=== PATIENT | female | born 1995 | race Caucasian/White ===

== ENCOUNTER 2020-07-26 09:50 | Day surgery (SDC) | payer BC ==
[2020-07-23 13:37] VITALS: BMI 21.4
[~2020-07-26 09:50] MED LIST: DEXAMETHASONE SOD PHOSPHATE 4 MG/ML 1 ML VIAL IV ONE; LACTATED RINGERS 1,000 ML IV SCH; LIDOCAINE 1% (10MG/ML) FOR IV START INTRADERMA PRN; MIDAZOLAM 2 MG/2 ML VIAL IV PRN; ONDANSETRON 4 MG/2 ML VIAL IVP ONE
[2020-07-26] MEDS ORDERED: MIDAZOLAM 2 MG/2 ML VIAL ONE (11:10)
[2020-07-26] MEDS ORDERED: fentaNYL (PF) 50 MCG/ML 2 ML AMP ONE (11:10)
[2020-07-26] MEDS ORDERED: KETAMINE 10 MG/ML 20 ML VIAL ONE (11:10)
[2020-07-26] MEDS ORDERED: BUPIVACAINE (PF) 0.25% 30 ML VIAL SQ ONE (11:14)
[2020-07-26] MEDS ORDERED: LACTATED RINGERS 1,000 ML IV ONE (12:30)
--- NOTE | 2020-07-26 12:46 | XR ---
EXAMINATION TYPE: XR foot limited RT DATE OF EXAM: 07/26/2020 COMPARISON: NONE HISTORY: ORIF TECHNIQUE: One view submitted FINDINGS: Exam limited by artifact resolution. Suggestion of postsurgical change involving the left f oot. Exam nearly nondiagnostic. IMPRESSION: See above
--- NOTE | 2020-07-26 12:46 | FL ---
EXAMINATION TYPE: FL guidance operating room DATE OF EXAM: 07/26/2020 HISTORY: Fluoroscopy time 1 minute and 15 seconds of fluoroscopy provided. IMPRESSION: 1. Fluoroscopy time.
[2020-07-26 12:52] VITALS: TEMP 97.7
[2020-07-26] MEDS: HYDROmorphone 0.5 MG/0.5 ML SYRINGE IVP PRN ×2 (12:55→13:02)
[2020-07-26 14:04] VITALS: BP 102/66; PULSE 76; RESP 16
[2020-07-26] MEDS ORDERED: ONDANSETRON 4 MG/2 ML VIAL ONE (14:05)
[2020-07-26] MEDS ORDERED: ONDANSETRON 4 MG/2 ML VIAL IVP ONE (14:05)
[2020-07-26] MEDS ORDERED: SCOPOLAMINE 1.5MG/72HR PATCH TRANSDERM ONE (14:25)
--- NOTE | 2020-08-01 21:13 | OP ---
OPERATIVE REPORT DATE OF SURGERY: 07/26/2020 PREOPERATIVE DIAGNOSIS: Hallux valgus, right foot. POSTOPERATIVE DIAGNOSIS: Hallux valgus, right foot. PROCEDURE: Lapidus bunionectomy, right foot. SURGEON: Ernesto Nava DPM ANESTHESIA: General. HEMOSTASIS: Right ankle tourniquet at 250 mmHg. ESTIMATED BLOOD LOSS: Minimal. MATERIALS: One lapiplasty U plate as well as a straight plate with associated screws. INJECTABLES: 20 mL 0.25% Marcaine preoperatively. SPECIMENS: None. COMPLICATIONS: None. OPERATIVE REPORT: The patient was brought into the operating room and placed on the table in supine position. Timeout was taken to confirm correct patient identifiers, correct site of surgery, and correct procedure. When everybody in the room was in agreement, the patient was placed under general anesthetic. Twenty mL of 0.25% Marcaine was injected as a right ankle block. A well-padded tourniquet was placed on the right ankle and the right foot was prepped and draped in the usual manner. The foot was exsanguinated, the tourniquet inflated to 250 mmHg. Attention was directed over the dorsal aspect of the right foot, where a 6 cm incision was made over the first tarsometatarsal joint medial to the long extensor tendon. The incision was deepened down to the subcutaneous tissue, careful to identify, avoid and retract any neurovascular structures and cauterize any bleeding vessels. Dissection was continued down to the capsule, where an incision was made through the capsule and periosteal structures medial to the long extensor tendon. Subperiosteal dissection was done with these tissues to expose the entirety of the joint. A sagittal saw was inserted into the joint to plane the surfaces and allow for a frontal plane range of motion. The fulcrum was then placed at the lateral base of the first metatarsal and intermediate cuneiform. The cut guide was placed over the joint surface and aligned. It was used as a reference point to lazaro the small incision 3 mm distal to the tip of the cut guide on the lateral side of the second metatarsal shaft, which was bluntly dissected. The reduction clamp was placed and advanced to correct the intermetatarsal angle. Once that was completed, the sesamoids were checked for position; however, they did not correct spontaneously. Therefore a small incision was made lateral to the first metatarsophalangeal joint. It was bluntly dissected down to the joint level, where a lateral capsulotomy was performed as well as a release of the lateral sesamoid collateral ligament. The clamp was used to reduce the intermetatarsal angle again. This time the sesamoids corrected. There was good medially gapping at the joint surface. The guidewire was placed through the reduction clamp and advanced to the second metatarsal to lock everything in place once the transverse and frontal plane correction was performed. The joint seeker was placed into the first tarsometatarsal joint and the cut guide applied over the top. Pins were placed through the cut guide to lock it in place. Then alignment was checked under fluoroscopy. Once that was confirmed, a third wire was placed to prevent any migration of the cut guide. The sagittal saw was used to resect the joint surfaces. Then the cut guide was removed. The distractor was placed over the guide pins and then the joint distracted. The bony pieces were then removed, making sure there was nothing left deep. When that was confirmed, the joint surfaces were fenestrated with a 2-0 drill bit, leaving the bony fragments in place. Then the wire was removed from the reduction clamp and then the arthrodesis site was compressed. Once full compression was achieved, it was checked under fluoroscopy to make sure there was no lateral or plantar gapping. When there was none found, a threaded olive wire was placed across the arthrodesis site to maintain correction. The medial U plate was placed with associated locking screws. The olive wire was removed and then repositioned to maintain temporary fixation. The dorsal plate was then placed with provisional fixation and checked under fluoroscopy for proper alignment. Once the proper alignment was achieved, the screw holes closest to the arthrodesis site were filled with their locking screws, the provisional fixation removed, and then the remaining locking screws placed. At that point the olive wire was removed, as was the reduction clamp, and fluoroscopic imaging showed complete correction of the intermetatarsal angle, no plantar gapping, good contact at the arthrodesis site, and correction of the sesamoid apparatus and the frontal plane deformity. The wounds were all irrigated with antibiotic saline. Deep closure was done with 2-0 Vicryl, subcutaneous closure done with 4-0 Monocryl. Skin closure was done with 3-0 Stratafix in a running subcuticular manner. Small incisions were closed with Monocryl. glue was applied across the incision, allowed to dry, and then Steri- Strips were applied across the incisions. Non-adherent gauze and a bulky dry dressing were applied over the right foot. The tourniquet was released and capillary refill returned to all digits on the right foot. The patient was placed in a short fracture boot with the ankle in neutral position. Anesthesia was reversed and the patient was taken to Recovery with vital signs stable. MMODL / IJN: [id number] /
== END 2020-07-26 14:36 | disposition home or self-care (01) ==
LOC: OR 09:50
PROVIDERS: ATTEND Podiatrist
DX: M20.11 Hallux valgus (acquired), right foot (principal); M20.12 Hallux valgus (acquired), left foot; M20.42 Other hammer toe(s) (acquired), left foot; M20.41 Other hammer toe(s) (acquired), right foot; M21.611 Bunion of right foot; M21.612 Bunion of left foot; Z98.890 Other specified postprocedural states
CPT/HCPCS: 81025; 73620; 28750; C1713; J2250; J1100; J0690; J2405; J3010; J1170

== ENCOUNTER 2021-04-11 05:56 | Day surgery (SDC) | payer BC ==
[2021-04-09 13:38] VITALS: BMI 21.4
[2021-04-11] MEDS ORDERED: ONDANSETRON 4 MG/2 ML VIAL ONE (05:57)
[2021-04-11] MEDS ORDERED: ONDANSETRON 4 MG/2 ML VIAL IVP ONE (06:26)
[2021-04-11] MEDS ORDERED: DEXAMETHASONE SOD PHOSPHATE 4 MG/ML 1 ML VIAL IV ONE (06:26)
[2021-04-11] MEDS ORDERED: MIDAZOLAM 2 MG/2 ML VIAL IV PRN (06:26)
[2021-04-11] MEDS ORDERED: SCOPOLAMINE 1.5MG/72HR PATCH TRANSDERM ONE (06:26)
[2021-04-11] MEDS ORDERED: LACTATED RINGERS 1,000 ML IV SCH (06:26)
[2021-04-11 06:30] VITALS: RESP 16
[2021-04-11] MEDS ORDERED: LIDOCAINE 1% (10MG/ML) FOR IV START INTRADERMA ONE (06:39)
[2021-04-11] MEDS ORDERED: fentaNYL (PF) 50 MCG/ML 2 ML AMP IVP ONE (06:55)
[2021-04-11] MEDS ORDERED: MIDAZOLAM 2 MG/2 ML VIAL IVP ONE (06:55)
[2021-04-11] MEDS ORDERED: LIDOCAINE 1% INJ 10MG/ML (20 ML MDV) ONE (07:19)
[2021-04-11] MEDS ORDERED: diphenhydrAMINE 50 MG/ML 1 ML VIAL ONE (07:19)
[2021-04-11] MEDS ORDERED: fentaNYL (PF) 50 MCG/ML 2 ML AMP ONE (07:19)
[2021-04-11] MEDS ORDERED: PROPOFOL 10 MG/ML 20 ML VIAL IV ONE (07:19)
[2021-04-11] MEDS ORDERED: LACTATED RINGERS 1,000 ML IV ONE ×2 (08:39→11:00)
[2021-04-11] MEDS: HYDROmorphone 0.5 MG/0.5 ML SYRINGE IVP PRN ×2 (09:17→09:30)
[2021-04-11 09:27] VITALS: TEMP 97.7
--- NOTE | 2021-04-11 09:35 | P.OP ---
Date of Procedure: 04/11/21 Preoperative Diagnosis: Hallux valgus left foot Postoperative Diagnosis: Same Procedure(s) Performed: Modified Lapidus bunionectomy left foot Implants: Plates and screws for Lapiplasty system Anesthesia: TIANNAA Surgeon: Ernetso Nava Estimated Blood Loss (ml): 3 Pathology: none sent Condition: stable Disposition: PACU Indications for Procedure: Painful bunion deformity nonresponsive to conservative treatment Description of Procedure: Prior to the patient being brought to the operating room, anesthesia administered a nerve block and left lower extremity utilizing ultrasonic guidance and having the patient under mild sedation. Then the patient was brought into the operating room and placed on table supine position. Timeout was taken to confirm correct patient identifiers, correct procedure, and correct site of surgery. The room was in agreement the patient was induced and placed under general anesthesia. A well-padded tourniquet was placed on left ankle and then the left foot was prepped and draped in the usual manner. The foot was exsanguinated with an Esmarch bandage and the tourniquet inflated to 250 mmHg Attention was first directed over the medial aspect of the first metatarsal phalangeal joint. A linear incision was made between the neurovascular structures. It was deepened down through the subcutaneous layer careful to identify, avoid, and retract any neurovascular structures and cauterize any b leeding vessels. Then dissection was continued down to the joint capsule. 2 semi-elliptical converging incisions were made on the medial aspect of the first metatarsal capsule the interposing piece of tissue was removed which would facilitate sesamoid correction upon closure. Then the capsule was reflected from its osseous attachments on the medial and plantar aspect of the first metatarsal head. The sesamoid apparatus was distracted plantarly and the lateral sesamoid collateral ligament transected and a lateral capsulotomy performed. Then attention was directed over the dorsal aspect of the first tarsometatarsal joint. A linear incision was made medial to the extensor hallucis longus tendon. It was deepened down to the subcutaneous tissue careful to identify, avoid, and retract any neurovascular structures and cauterize any bleeding vessels. Blunt dissection was continued down to the deep fascia and periosteum. An incision was made through these tissues medial to the extensor hallucis longus tendon. Subperiosteal dissection was performed of the soft tissue to expose the first tarsometatarsal joint. An osteotome was inserted into the joint to free up any so many soft tissue attachments. A sagittal saw blade was inserted into the joint space and then the saw activated to plane the joint surfaces and increased frontal plane rotation movement. A wire was then placed in the base of the first metatarsal approximately 1 cm from the joint line. This was used to rotate the first metatarsal to correct frontal plane rotation. A combination joint seeker/fulcrum was then inserted through the joint and on the lateral aspect of the base of the first metatarsal. The cut guide was then placed over the joint seeker and then as a reference the distal aspect of the cut guide was used for the small incision made over the lateral side of the second metatarsal. The ankle reduction clamp was then positioned and then while holding the frontal plane rotation corrected, was advanced to close the intermetatarsal angle. The Monocryl was visualized under fluoroscopy and once the acceptable amount of correction was noted a guidewire was placed through the reduction clamp to lock everything in place. Pins were placed through the cut guide and a third pin placed in the cut guide to prevent it from migrating dorsally and prevent any rotation. A sagittal saw 0 used to resect the joint surfaces of the tarsometatarsal joint through the cut guide. The pin that locked the cutting guide in place was removed and then the cut guide was removed and then the joint distractor placed over the remaining pins. The pin through the reduction clamp was removed at this time. The distractor was opened so that there was easier access to the cut surface of the bone. The combination joint seeker fulcrum were removed. All pieces of bone were thoroughly removed and the wound is irrigated thoroughly with antibiotic saline. Then a 2 mm drill bit was used to fenestrate both of the conjoining surfaces of the arthrodesis site. A smaller fulcrum that was then placed on the lateral side of the base of the first metatarsal. Then the distractor was reversed and while holding the great toe dorsiflexed was used to compress the cut surfaces of bone until a fully seated against each other. Fluoroscopic imaging checked on both the AP and lateral views show that there was complete compression of the arthrodesis site with no angular deformity. Threaded olive wire was then placed from dorsal proximal to distal plantar on the lateral side of the arthrodesis site first second point of fixation. The medial plate was then positioned across the arthrodesis site and then temporarily fixated. Fluoroscopy was used to check the overall alignment and once it was found satisfactory drill holes were made at the screw holes closest to the arthrodesis site. The combination locking/compression screws were placed through these drill holes and then tightened down fully into the plate. The temporary fixation was removed and locking screws were placed in the most distal and proximal holes of the medial plate. The distractor was removed along with the guidepins. The dorsal plate was positioned and temporarily fixated until satisfactory under fluoroscopy. The holes closest to the arthrodesis site were filled with 1 compression/locking screw and 1 locking screw. Then the temporary fixation was removed and the most distal proximal holes were filled with 1 locking compression 1 locking screw. Final fluoroscopic imaging showed complete correction intermetatarsal angle with p kamron alignment of the sesamoid apparatus. A sagittal saw was used to resect some of the medial eminence of the first metatarsal head that seemed to protrude abnormally. Once completed all roughened edges were smoothed with a rasp and then all the wounds were thoroughly irrigated with antibiotic saline. Capsular closure was done with 0 Vicryl. Subcu closure done with 4-0 Monocryl. Skin closure done with 40 stratified effects in a running subarticular manner. Dermal glue was applied across incisions allowed to dry then Steri-Strips are placed over all the incisions. A jumpstart dressing was placed over the incisions and a bulky dry dressing applied to left foot. The tourniquet was released and capillary refill return to all digits on the left foot. The patient was then placed in a well-padded, well molded plaster posterior mold/sugar tong splint that was held in place until it dried in neutral position. Anesthesia reversed and the patient taken recovery with vital signs stable.
[2021-04-11] MEDS ORDERED: KETOROLAC 15 MG/ML 1 ML VIAL ONE (10:08)
[2021-04-11] MEDS ORDERED: HYDROmorphone 0.5 MG/0.5 ML SYRINGE IVP ONE (10:33)
[2021-04-11] MEDS ORDERED: oxyCODONE-APAP 5-325MG 1 EACH TAB PO ONE ×2 (10:42→12:01)
[2021-04-11] MEDS ORDERED: oxyCODONE-APAP 5-325MG 1 EACH TAB ONE ×2 (10:45→11:58)
[2021-04-11 12:46] VITALS: BP 129/77; PULSE 95
--- NOTE | 2021-04-11 16:06 | P.ANPRN ---
Procedure Note - Anesthesia - Nerve Block Performed Left Adductor Canal Single Time Out Performed: Yes Date of Procedure: 04/11/21 Procedure Start Time: 06:54 Procedure Stop Time: 07:00 Location of Patient: PreOp Indication: Acute Post-Operative Pain, Dx/Pain Location, Requested by Surgeon Specifically requested for management of pain by DrVitaly: Ernesto Nava Sedation Type: Sedate with meaningful contact maintained Preparation: Sterile Prep Position: Supine Catheter: None Needle Types: Facet Needle Gauge: 21 Ultrasound used to visualize needle placement: Yes Ultrasound used to observe medication spread: Yes Injectate: 0.5% Ropivacaine (see comment for volume) Blood Aspirated: No Pain Paresthesia on Injection Noted: No Resistance on Injection: Normal Image Stored and Saved: Yes Events: Uneventful and Well Tolerated (20cc 0.25% Ropivacaine)
--- NOTE | 2021-04-11 16:08 | P.ANPRN ---
Procedure Note - Anesthesia - Nerve Block Performed Left Popliteal Single Time Out Performed: Yes Date of Procedure: 04/11/21 Procedure Start Time: 12:43 Procedure Stop Time: 12:49 Location of Patient: Phase II Indication: Acute Post-Operative Pain, Dx/Pain Location, Requested by Surgeon Specifically requested for management of pain by DrVitaly: Ernesto Nava Sedation Type: Sedate with meaningful contact maintained Preparation: Sterile Prep Position: Left Lateral Catheter: None Needle Types: Facet Needle Gauge: 21 Ultrasound used to visualize needle placement: Yes Ultrasound used to observe medication spread: Yes Injectate: 0.5% Ropivacaine (see comment for volume) Blood Aspirated: No Pain Paresthesia on Injection Noted: No Resistance on Injection: Normal Image Stored and Saved: Yes Events: Uneventful and Well Tolerated (20cc 0.375% Ropivacaine)
== END 2021-04-11 13:13 | disposition home or self-care (01) ==
LOC: OR 05:56
PROVIDERS: ATTEND Podiatrist
DX: M20.12 Hallux valgus (acquired), left foot (principal); Z98.890 Other specified postprocedural states
CPT/HCPCS: 28297; 64447; 81025; 64445; 76942; C1713; J2250; J1200; J1100; J0690; J2405; J2001; J3010; J1885; J2704; J1170

== ENCOUNTER 2024-10-25 22:14 | Outpatient (CLI) | payer BC ==
--- NOTE | 2024-10-25 23:59 | P.HPOB ---
History of Present Illness H&P Date: 10/25/24 Chief Complaint: 21-5/7 weeks, threatened The patient is a 28-year-old 1 para 0 admitted at 21-5/7 weeks as established by last menstrual period and in vitro fertilization dating parameters. She presented to the hospital this evening complaining of abdominal cramping with some vaginal bleeding noted and a sensation of something in the vagina. On labor and delivery, heart tones were documented and ultrasound was ordered. Ultrasound demonstrates viability, formal reading is pending at the time of this dictation. There are noted to be membranes bulging into the vagina through the cervix which appears to be approximately 1 to 2 cm dilated by ultrasound. Speculum examination has not been performed. The patient denies any current discomfort. To this point her has been essentially uncomplicated. She apparently underwent anatomy screening ultrasound earlier this week which was normal by report from the patient though apparently some attention was paid at the time of the ultrasound to cervix which was deemed normal by transvaginal ultrasound. Obstetrical history: 1 para 0 with current statistics listed in history of present illness. EDC of 03/02/2025 was established by last menstrual period and in vitro fertilization dating parameters. Laboratory workup demonstrates a blood type of O+ with a negative antibody screen. Rubella status is nonimmune. The remainder of the laboratory workup was within normal limits. She did have normal trisomy testing. Glucola has not yet been determined. Gynecologic history: Unremarkable with no history of any infections to include STDs. Review of Systems Review of systems is confined to history of present illness. Past Medical History Past Medical History: No Reported History Additional Past Medical History / Comment(s): Rt foot bunion History of Any Multi-Drug Resistant Organisms: None Reported Additional Past Surgical History / Comment(s): molar extractions. rt foot bunionectomy Past Anesthesia/Blood Transfusion Reactions: No Reported Reaction, Postoperative Nausea & Vomiting (PONV) Additional Past Anesthesia/Blood Transfusion Reaction / Comment(s): request scopolamine patch with surgery Smoking Status: Never smoker - Past Family History Mother Family Medical History: No Reported History Medications and Allergies Home Medications Medication Instructions Recorded Confirmed Type Vit No.179/Iron/Folic 1 each PO 10/25/24 History [ Tablet] Allergies Allergy/AdvReac Type Severity Reaction Status Date / Time No Known Allergies Allergy Verified 10/25/24 22:36 Exam Intake and Output 04/23/25 04/23/25 04/24/25 14:59 22:59 06:59 Other: Weight 70.307 kg In general, this is a well-developed, well-nourished white female in no acute distress. Her heart has a regular rhythm and rate without murmur. Her lungs clear to auscultation bilaterally in all [place]. Her abdomen is gravid with appropriate fundal height, nondistended, normal active bowel sounds, soft, nontender, and without any palpable masses aside from the uterine fundus. Her extremities are without any cyanosis, clubbing, or edema and are nontender to palpation bilaterally. Digital cervical examination is deferred as a speculum examination. Assessment and Plan (1) 21 weeks gestation of Current Visit: Yes Status: Acute Code(s): Z3A.21 - 21 WEEKS GESTATION OF SNOMED Code(s): 05105209 (2) Threatened Current Visit: Yes Status: Acute Code(s): O20.0 - THREATENED SNOMED Code(s): 77702592 (3) Vaginal bleeding before 22 weeks gestation Current Visit: Yes Status: Acute Code(s): O20.9 - HEMORRHAGE IN EARLY , UNSPECIFIED SNOMED Code(s): 77182426 Plan: I have spoken with physicians at [facility] in [place] to arrange transfer in order to attempt to rescue the . I suspect a strong possibility of cervical incompetence. The patient has agreed to transfer once it has been accepted by the receiving institution for which we are awaiting a phone call. She will be transported by ambulance with an IV and Dumont catheter in place.
--- NOTE | 2024-10-26 00:16 | US ---
EXAM: US , Transvaginal CLINICAL HISTORY: ITS.REASON US Reason: bleeding cramping 21 weeks IVF preg fluid level. TECHNIQUE: Real-time Transabdominal obstetrical ultrasound of the maternal pelvis and second or third trimester with image documentation. Endovaginal imaging was used for better evaluation of the fetus and adnexa. 32 images COMPARISON: No relevant prior studies available. FINDINGS: Fetus: Single live intrauterine with an estimated gestational age of 22 weeks 2 days per biometric measurements. Heart rate: heart rate is 158. Presentation: Breech Placenta: Grade 0 placenta is located posteriorly, low-lying. No abruption. Amniotic fluid: ABBY is 12 cm. Anatomy: Intracranial/face anatomy not seen. Spinal anatomy not seen. Abdominal anatomy not seen. Extremities not seen. Four-chamber heart not seen. Umbilical cord not seen. BIOMETRICS Gestational age: 22 weeks 2 days ZENY: 02/26/25 EFW: 1 lb. 1 oz. BPD: 5.32 cm, 22 weeks 2 days HC: 20.04 cm, 22 weeks 2 days AC: 17.06 cm, 22 weeks 1 day FL: 3.73 cm, 22 weeks MATERNAL: Uterus: Unremarkable. No myometrial mass. Cervix: Suspect U-shaped funneling with 6.2 x 4.7 x 5.7 cm amniotic sac protruding into the cervical canal, best seen on image 27. Free fluid: No free fluid. IMPRESSION: Single live intrauterine comparison with an estimate of gestational age of 22 weeks 2 days per biometric measurements. Estimated due date is 02/26/25. Cervical incompetence with protrusion of amniotic sac into cervical canal or vaginal canal. <MYCVCSECTION> Communications: 10/26/24 00:33 Verify Receipt Verified receipt with child care supervisor dru patel in [place] will locate a doctor who can see report to see if pt needs to be called in for medical care on 10/26 00:33 (-04:00)
[2024-10-26] MEDS: BUTORPHANOL 1 MG/ML 1 ML VIAL IV PRN (01:32)
[2024-10-26] MEDS ORDERED: ONDANSETRON 4 MG/2 ML VIAL IM STA (01:36)
[2024-10-26] MEDS: LACTATED RINGERS 1,000 ML IV SCH (01:41)
[2024-10-26 01:55] LABS: Basophils % (A) 0.4 %; Eosinophils % (A) 1.3 %; HCT 40.2 % (37.2-46.3); HGB 13.8 g/dL (12.0-15.0); Lymphocytes % (A) 17.1 %; MCH 31.9 pg (27.0-32.0); MCHC 34.3 g/dL (32.0-37.0); MCV 93.1 fL (80.0-97.0); Monocytes % (A) 7.1 %; Neutrophils % (A) 73.1 %; Platelet Count 239 10*3/uL (140-440); RBC 4.32 10*6/uL (4.10-5.20); RDW 13.4 % (11.5-14.5); WBC 10.89 10*3/uL (4.50-10.00)
[2024-10-26 01:56] LABS: Basophils # (A) 0.04 10*3/uL (0.00-0.10); Eosinophils # (A) 0.14 10*3/uL (0.04-0.35); Lymphocytes # (A) 1.86 10*3/uL (0.90-5.00); Monocytes # (A) 0.77 10*3/uL (0.20-1.00); Neutrophils # (A) 7.97 10*3/uL (1.80-7.70)
[2024-10-26 02:18] VITALS: BP 131/82; PULSE 101; RESP 16; TEMP 98.1
== END 2024-10-26 01:46 ==
LOC: FBPOP 22:14
PROVIDERS: ATTEND Obstetrics & Gynecology
DX: O20.0 Threatened abortion (principal); O26.892 Other specified pregnancy related conditions, second trimester; Z3A.22 22 weeks gestation of pregnancy
CPT/HCPCS: 76805; 85025; 96360; 96361; 96375; 99215

== ENCOUNTER → 2025-01-08 | Outpatient (CLI) | payer BC | END | disposition home or self-care (01) | LOC: LABWHC1 16:02 | PROVIDERS: ATTEND Obstetrics & Gynecology Obstetrics | DX: N93.8 Other specified abnormal uterine and vaginal bleeding (principal) | CPT/HCPCS: 36415; 84702 ==

== ENCOUNTER → 2025-01-27 | Outpatient (CLI) | payer BC ==
[2025-01-27 14:43] LABS: Basophils # (A) 0.05 X 10*3/uL (0.00-0.10); Basophils % (A) 1.0 %; Eosinophils # (A) 0.22 X 10*3/uL (0.04-0.35); Eosinophils % (A) 4.4 %; HCT 43.6 % (37.2-46.3); HGB 14.6 g/dL (12.0-15.0); Immature Grans, Automated 0 %; Lymphocytes # (A) 2.04 X 10*3/uL (0.90-5.00); Lymphocytes % (A) 41.0 %; MCH 30.6 pg (27.0-32.0); MCHC 33.5 g/dL (32.0-37.0); MCV 91.4 FL (80.0-97.0); Monocytes # (A) 0.33 X 10*3/uL (0.20-1.00); Monocytes % (A) 6.6 %; NRBC Per 100 WBC 0 X 10*3/uL (0.00-0.01); Neutrophils # (A) 2.33 X 10*3/uL (1.80-7.70); Neutrophils % (A) 47.0 %; Platelet Count 253 X 10*3/uL (140-440); RBC 4.77 X 10*6/uL (4.10-5.20); RDW 12.4 % (11.5-14.5); WBC 4.97 X 10*3/uL (4.50-10.00)
== END | disposition home or self-care (01) ==
LOC: LABWHC1 10:43
PROVIDERS: ATTEND Obstetrics & Gynecology Obstetrics
DX: N93.9 Abnormal uterine and vaginal bleeding, unspecified (principal); Z01.812 Encounter for preprocedural laboratory examination
CPT/HCPCS: 36415; 85025

== ENCOUNTER 2025-02-02 06:04 | Day surgery (SDC) | payer BC ==
[2025-01-29 15:35] VITALS: BMI 24.0
[~2025-02-02 06:04] MED LIST changes: -DEXAMETHASONE SOD PHOSPHATE 4 MG/ML 1 ML VIAL IV ONE; -LACTATED RINGERS 1,000 ML IV SCH; -LIDOCAINE 1% (10MG/ML) FOR IV START INTRADERMA PRN; -MIDAZOLAM 2 MG/2 ML VIAL IV PRN; -ONDANSETRON 4 MG/2 ML VIAL IVP ONE; +Pre Op ABX Message 1 EACH MISC MISCELLANE ONE
[2025-02-02] MEDS ORDERED: MIDAZOLAM 2 MG/2 ML VIAL IV PRN (06:34)
[2025-02-02] MEDS ORDERED: fentaNYL (PF) 50 MCG/ML 2 ML AMP IVP PRN (06:34)
[2025-02-02] MEDS ORDERED: HYDROmorphone 0.5 MG/0.5 ML SYRINGE IVP PRN (06:34)
[2025-02-02] MEDS ORDERED: LIDOCAINE 1% (10MG/ML) FOR IV START INTRADERMA PRN (06:34)
[2025-02-02] MEDS: IV FLUID CONTINUATION 1,000 ML IV ONE (06:35)
[2025-02-02] MEDS: LACTATED RINGERS 1,000 ML IV SCH (06:55)
[2025-02-02] MEDS: DEXAMETHASONE SOD PHOSPHATE 4 MG/ML 1 ML VIAL IV ONE (07:03)
[2025-02-02] MEDS: ONDANSETRON 4 MG/2 ML VIAL IVP ONE (07:03)
[2025-02-02] MEDS: FAMOTIDINE 20 MG/2 ML VIAL IV STA (07:14)
[2025-02-02] MEDS ORDERED: LIDOCAINE 1% INJ 10MG/ML (20 ML MDV) ONE (07:33)
[2025-02-02] MEDS ORDERED: MIDAZOLAM 2 MG/2 ML VIAL ONE (07:33)
[2025-02-02] MEDS ORDERED: KETOROLAC 15 MG/ML 1 ML VIAL ONE (07:33)
[2025-02-02] MEDS ORDERED: PROPOFOL 10 MG/ML 20 ML VIAL IV ONE (07:33)
[2025-02-02] MEDS ORDERED: fentaNYL (PF) 50 MCG/ML 2 ML AMP ONE (07:33)
[2025-02-02 08:09] VITALS: TEMP 97.3
--- NOTE | 2025-02-02 08:11 | P.HPOB ---
History of Present Illness H&P Date: 02/02/25 Chief Complaint: Dysfunctional uterine bleeding, endometrial polyps 29-year-old 1 para 0-1-0-0 that presents with complaints of dysfunctional uterine bleeding. Patient did have a missed AB at 20 weeks, incompetent cervix. Since delivery patient has noted dysfunctional bleeding. Ultrasound was performed in the office revealing a hypervascular polyp. Patient was counseled on findings and recommendation of hysteroscopy with dilation and curettage. Patient agreed and surgery was scheduled. Review of Systems Constitutional: Denies chills, Denies fatigue, Denies fever Ears, nose, mouth and throat: Denies headache Cardiovascular: Reports leg edema Respiratory: Denies dyspnea Gastrointestinal: Denies constipation, Denies diarrhea, Denies nausea, Denies vomiting Genitourinary: Reports as per HPI, Reports abnormal vaginal bleeding, Denies Past Medical History Past Medical History: No Reported History Additional Past Medical History / Comment(s): Rt foot bunion, IN OCTOBER FOR INCOMPETENT CERVIX, HAS BEEN BLEEDING SINCE History of Any Multi-Drug Resistant Organisms: None Reported Additional Past Surgical History / Comment(s): molar extractions. rt foot bunionectomy Past Anesthesia/Blood Transfusion Reactions: No Reported Reaction, Postoperative Nausea & Vomiting (PONV) Additional Past Anesthesia/Blood Transfusion Reaction / Comment(s): request scopolamine patch with surgery Smoking Status: Never smoker - Past Family History Mother Family Medical History: No Reported History Medications and Allergies Home Medications Medication Instructions Recorded Confirmed Type No Known Home Medications 01/29/25 02/02/25 History Allergies Allergy/AdvReac Type Severity Reaction Status Date / Time No Known Allergies Allergy Verified 02/02/25 06:38 Exam Osteopathic Statement: *. No significant issues noted on an osteopathic structural exam other than those noted in the History and Physical/Consult. Vital Signs Temp Pulse Resp BP Pulse Ox 02/02/25 06:35 97.7 F 60 14 114/78 100 Intake and Output 02/01/25 02/02/25 02/02/25 22:59 06:59 14:59 Intake Total 100 400 Output Total 105 Balance 100 295 Intake: IV 100 400 Output: Urine 100 Estimated Blood Loss 5 Other: Weight 65.6 kg Targeted physical exam is performed this date General Is well-nourished well- developed female no acute distress, breathing is nonlabored, heart has a regular rate and rhythm, abdomen is soft and nontender, genitourinary exam external vaginal exam is normal no lesions are appreciated. Vaginal mucosa is noted to be pink and well-rugated. Cervix is without lesion uterus mobile no adnexal m asses are appreciated. Assessment and Plan (1) DUB (dysfunctional uterine bleeding) Current Visit: Yes Status: Acute Code(s): N93.8 - OTHER SPECIFIED ABNORMAL UTERINE AND VAGINAL BLEEDING SNOMED Code(s): 34025533513401 (2) Endometrial polyp Current Visit: Yes Status: Acute Code(s): N84.0 - POLYP OF CORPUS UTERI SNOMED Code(s): 6616783555 Plan: Hysteroscopy dilation and curettage today, surgery is reviewed and informed consent is obtained. Anesthesia into see patient will proceed with hysteroscopy, dilation and curettage
--- NOTE | 2025-02-02 08:14 | P.OP ---
Date of Procedure: 02/02/25 Preoperative Diagnosis: Dysfunctional uterine bleeding, endometrial polyp Postoperative Diagnosis: Same Procedure(s) Performed: Hysteroscopy, dilation and curettage Anesthesia: MAC Surgeon: Pita Story Estimated Blood Loss (ml): 5 IV fluids (ml): 400 Urine output (ml): 100 Pathology: other (Endometrial curettings) Condition: stable Disposition: PACU Indications for Procedure: Dysfunctional uterine bleeding Operative Findings: Multiple polyps appreciated otherwise proliferative endometrium Description of Procedure: Patient was taken back to the operating suite where general anesthesia was obtained without difficulty by the anesthesia department. She was prepped and draped in the normal sterile fashion in the dorsolithotomy position. A red rubber catheter was used to drain the bladder of clear yellow urine. A weighted speculum was placed in the posterior vaginal vault the anterior lip of the cervix was visualized and grasped with a single-tooth tenaculum. The endocervical canal was then serially dilated. Hysteroscope was placed through the cervix and toward the endometrial cavity, an intact cavity was appreciated with multiple polyps and proliferative endometrium. Pictures were taken and hysteroscope was removed. A sharp curettage was then performed with removal of multiple polyps. The specimen was sent to pathology for analysis. The single-tooth tenaculum was taken off of the anterior lip of the cervix hemostasis was appreciated. All instruments were removed from the patient's vaginal vault. All counts were noted be correct x 2 at the end of the procedure. Patient tolerated procedure well and was taken to the recovery in awake and stable condition.
[2025-02-02 09:01] VITALS: RESP 18
[2025-02-02 09:18] VITALS: BP 118/81; PULSE 56
== END 2025-02-02 09:32 | disposition home or self-care (01) ==
LOC: OR 06:04
PROVIDERS: ATTEND Obstetrics & Gynecology Obstetrics
DX: N84.0 Polyp of corpus uteri (principal); O02.1 Missed abortion; O09.212 Supervision of pregnancy with history of pre-term labor, second trimester; O34.32 Maternal care for cervical incompetence, second trimester
CPT/HCPCS: 81025; 88305; 58558; J2250; J1100; J2405; J2003; J3010; J1885; J2704; J1308